=== PATIENT | female | born 1965 | race Asian ===

== ENCOUNTER 2017-04-05 10:06 | Emergency (ER) | payer OTHER ==
--- NOTE | 2017-04-05 11:08 | UC ---
Complaint Female HPI - HPI Summary HPI Summary: Low abdominal pain, pulling, fullness sensation since yesterday. Feels like UTI and pt has been prone to these in the past, but also concerned there is something wrong in her uterus since she is perimenopausal. Reports she may have had some high risk sexual exposures recently, is concerned about STIs. No vaginal itching, discharge, or fever. - History Of Current Complaint Chief Complaint: UCGU Stated Complaint: URINARY ISSUE Time Seen by Provider: 04/05/17 10:28 Hx Obtained From: Patient Hx Last Menstrual Period: 03/04/17 ?: No Onset/Duration: Gradual Onset, Lasting Days Timing: Constant Severity Initially: Mild Severity Currently: Mild Character: Dull, Cramping Aggravating Factor(s): Movement Associated Signs And Symptoms: Negative: Fever, Back Pain, Vaginal Bleeding/ Discharge, Vaginal Discharge, Vomiting(# Of Episodes =), Genital Swelling - Allergies/Home Medications Allergies/Adverse Reactions: Allergies Allergy/AdvReac Type Severity Reaction Status Date / Time Sulfa Antibiotics Allergy Hives Verified 02/16/16 17:28 PMH/Surg Hx/FS Hx/Imm Hx Previously Healthy: Yes - Surgical History Surgical History: Yes Surgery Procedure, Year, and Place: [facility] 1996 - Family History Known Family History: Positive: None - Social History Occupation: Unemployed Alcohol Use: Occasionally Substance Use Type: None Smoking Status (MU): Never Smoked Tobacco Review of Systems Constitutional: Negative Skin: Negative Eyes: Negative ENT: Negative Respiratory: Negative Cardiovascular: Negative Gastrointestinal: Abdominal Pain Genitourinary: Negative Motor: Negative Neurovascular: Negative Musculoskeletal: Negative Neurological: Negative Psychological: Negative All Other Systems Reviewed And Are Negative: Yes Physical Exam Triage Information Reviewed: Yes Appearance: Well-Appearing, No Pain Distress, Well-Nourished Vital Signs: Initial Vital Signs Temp 97.7 F 04/05/17 10:07 Pulse 76 04/05/17 10:07 Resp 18 04/05/17 10:07 Pulse Ox 100 04/05/17 10:07 Vital Signs Reviewed: Yes Eye Exam: Normal Eyes: Positive: Conjunctiva Clear ENT Exam: Normal ENT: Positive: Normal ENT inspection, Hearing grossly normal, Pharynx normal, TMs normal Dental Exam: Normal Neck exam: Normal Neck: Positive: Supple, Nontender, No Lymphadenopathy Respiratory Exam: Normal Respiratory: Positive: Chest non-tender, Lungs clear, Normal breath sounds, No respiratory distress, No accessory muscle use Cardiovascular Exam: Normal Cardiovascular: Positive: RRR, No Murmur Musculoskeletal Exam: Normal Neurological Exam: Normal Neurological: Positive: Alert Psychological Exam: Normal Skin Exam: Normal - Additional Comments Church Administrator exam performed, no external masses or lesions. Vagina WNL with whitish discharge. Cervix nontender, purple bumps at 3 o'clock no bleeding. Adnexa no mass nontender. Uterus not enlarged, mildly tender. Complaint Female Dx - Differential Dx/Diagnosis Provider Diagnoses: UTI. pelvic pain Discharge - Discharge Plan Condition: Stable Disposition: HOME Patient Education Materials: Urinary Tract Infection in Women (ED), Pelvic Pain (ED) Referrals: Sydnee Damon MD [Primary Care Provider] - Additional Instructions: Please see Dr. Damon when you get back from your trip if you do not have full improvement. Make sure you mention the spots on your cervix to Dr. Damon at your physical in May.
== END 2017-04-05 11:17 | disposition home or self-care (01) ==
LOC: UCEAST 10:06
DX: N39.0 Urinary tract infection, site not specified (principal); R10.2 Pelvic and perineal pain
CPT/HCPCS: 81003; 87480; 87491; 87510; 87591; 99212; G0463

== ENCOUNTER 2018-08-21 10:26 | Emergency (ER) | payer OTHER ==
[2018-08-21 10:33] VITALS: BP 125/78
--- NOTE | 2018-08-21 10:36 | UC ---
Throat Pain/Nasal Arpan HPI - HPI Summary HPI Summary: 53 yo female presents with sinus pain/pressure/congestion, post nasal drip, and dry cough. She tells me that her sinus symptoms started about a week ago and she thought it was her allergies flaring up. Has been using flonase, netti pot, and zyrtec without relief. Over the last 2 days her sinus symptoms worsened and she began to have a dry cough that she attributes to throat irritation from post nasal drip. Denies fever, chills, SOB, chest pain, rash. - History of Current Complaint Chief Complaint: UCGeneralIllness Stated Complaint: SINUS CONGESTION, AND SORE THROAT Time Seen by Provider: 08/21/18 10:36 Hx Obtained From: Patient Hx Last Menstrual Period: 03/04/17 Onset/Duration: Gradual Onset Severity: Moderate Pain Intensity: 5 Pain Scale Used: 0-10 Numeric Cough: Nonproductive - Allergies/Home Medications Allergies/Adverse Reactions: Allergies Allergy/AdvReac Type Severity Reaction Status Date / Time Sulfa (Sulfonamide Allergy Hives Verified 08/21/18 10:33 Antibiotics) PMH/Surg Hx/FS Hx/Imm Hx - Additional Past Medical History Additional PMH: None - Surgical History Surgical History: Yes Surgery Procedure, Year, and Place: [facility] 1996,[facility] - Family History Known Family History: Positive: None - Social History Occupation: Employed Full-time Lives: With Family Alcohol Use: Occasionally Substance Use Type: None Smoking Status (MU): Never Smoked Tobacco Review of Systems All Other Systems Reviewed And Are Negative: Yes Constitutional: Positive: Negative Skin: Positive: Negative Eyes: Positive: Negative ENT: Positive: Nasal Discharge, Sinus Congestion, Sinus Pain/Tenderness Respiratory: Positive: Cough Cardiovascular: Positive: Negative Gastrointestinal: Positive: Negative Neurovascular: Positive: Negative Neurological: Positive: Negative Psychological: Positive: Negative Physical Exam - Summary Physical Exam Summary: GENERAL: NAD. WDWN. No pain distress. SKIN: No rashes, sores, lesions, or open wounds. HEENT: Head: AT/NC Eyes: EOM intact. Conjunctiva clear without inflammation or discharge. Ears: Hearing grossly normal. TMs intact, no bulging, erythema, or edema. Nose: Nasal mucosa moderately swollen and erythematous with yellow discharge. TTP maxillary and frontal sinus. Positive post nasal drip Throat: Posterior oropharynx without exudates, erythema, or tonsillar enlargement. Uvula midline. NECK: Supple. Nontender. No lymphadenopathy. CHEST: CTAB. No r/r/w. No accessory muscle use. Breathing comfortably and in no distress. CV: RRR. Without m/r/g. Pulses intact. NEURO: Alert. PSYCH: Age appropriate behavior. Triage Information Reviewed: Yes Vital Signs: Initial Vital Signs Temp 98 F 08/21/18 10:30 Pulse 84 08/21/18 10:30 Resp 16 08/21/18 10:30 BP 125/78 08/21/18 10:30 Pulse Ox 99 08/21/18 10:30 Vital Signs Reviewed: Yes Throat Pain/Nasal Course/Dx - Course Course Of Treatment: Sinusitis - Differential Dx/Diagnosis Provider Diagnoses: Sinusitis Discharge - Sign-Out/Discharge Documenting (check all that apply): Patient Departure All imaging exams completed and their final reports reviewed: No Studies - Discharge Plan Condition: Stable Disposition: HOME Prescriptions: Amoxicillin PO (*) [Amoxicillin 875 MG (*)] 875 mg PO BID #14 tab Patient Education Materials: Sinusitis (ED) Referrals: Sydnee Daomn MD [Primary Care Provider] - Additional Instructions: If you develop a fever, shortness of breath, chest pain, new or worsening symptoms - please call your PCP or go to the ED. - Billing Disposition and Condition Condition: STABLE Disposition: Home
== END 2018-08-21 10:48 | disposition home or self-care (01) ==
LOC: UCEAST 10:26
DX: Z88.1 Allergy status to other antibiotic agents (principal); J32.9 Chronic sinusitis, unspecified
CPT/HCPCS: 99212; G0463

== ENCOUNTER 2019-04-18 21:40 | Emergency (ER) | payer OTHER ==
[2019-04-18 21:54] VITALS: BP 125/80
--- NOTE | 2019-04-18 22:17 | UC ---
Abdominal Pain Female HPI - HPI Summary HPI Summary: 53 year old female with no PMH, presents with epigrastic, RUQ abdominal pain since 6pm after eating dinner. Pain increased, very severe. Patient states had similar symptoms ~ 20 years ago, thought was acid reflux, resolved on own after several weeks. no GERD/ reflux since. - History of Current Complaint Chief Complaint: UCAbdominalPain Stated Complaint: EPIGASTRIC PAIN Time Seen by Provider: 04/18/19 22:02 Hx Obtained From: Patient, Family/Front Office Administrator - Hx Last Menstrual Period: post menopause ?: No Onset/Duration: Sudden Onset, Lasting Minutes Timing: Constant Severity Initially: Severe Severity Currently: Severe Pain Intensity: 7 Pain Scale Used: 0-10 Numeric Location: Discrete At: RUQ, Epigastric Radiates: No Character: Cramping, Sharp Aggravating Factor(s): Nothing Alleviating Factor(s): Nothing Associated Signs and Symptoms: Positive: Negative Allergies/Adverse Reactions: Allergies Allergy/AdvReac Type Severity Reaction Status Date / Time Sulfa (Sulfonamide Allergy Hives Verified 10/07/18 14:57 Antibiotics) PMH/Surg Hx/FS Hx/Imm Hx Previously Healthy: Yes - Surgical History Surgical History: Yes Surgery Procedure, Year, and Place: lap appy 1996,hyster - Family History Known Family History: Positive: None - Social History Alcohol Use: Occasionally Substance Use Type: None Smoking Status (MU): Never Smoked Tobacco Review of Systems All Other Systems Reviewed And Are Negative: Yes Constitutional: Positive: Negative Gastrointestinal: Positive: Abdominal Pain Psychological: Positive: Negative Is Patient Immunocompromised?: No Physical Exam Triage Information Reviewed: Yes Appearance: Well-Appearing, No Pain Distress, Well-Nourished Vital Signs: Initial Vital Signs Temp 99.0 F 04/18/19 21:47 Pulse 80 04/18/19 21:47 Resp 16 04/18/19 21:47 BP 125/80 04/18/19 21:47 Pulse Ox 100 04/18/19 21:47 Vital Signs Reviewed: Yes Eyes: Positive: Conjunctiva Clear ENT: Positive: Hearing grossly normal Abdomen Description: Positive: No Organomegaly, Soft, McBurney's Point Tenderness, Other: - + epigastric pain, mild, + GB pain moderate to severe. Negative: CVA Tenderness (R), CVA Tenderness (L), Distended, Guarding, Hepatomegaly, Splenomegaly Discharge - Discharge Plan Condition: Good Disposition: HOME-RECOMMEND TO ED Patient Education Materials: Acute Abdominal Pain (ED) Referrals: Sydnee Damon MD [Primary Care Provider] - Additional Instructions: Please go to ER for further evaluation as we do not have imaging here currently. - Billing Disposition and Condition Condition: GOOD Disposition: Home-Recommend to ED
== END 2019-04-18 22:14 | disposition home health service (06) ==
LOC: UCEAST 21:40
DX: R10.11 Right upper quadrant pain (principal); R10.13 Epigastric pain; Z88.2 Allergy status to sulfonamides
CPT/HCPCS: 99212; G0463

== ENCOUNTER 2019-04-18 22:34 | Emergency (ER) | payer OTHER ==
[2019-04-19] MEDS ORDERED: Ketorolac INJ* 30 MG/ML 1 ML VIAL IV PUSH ONE (00:25)
[2019-04-19] MEDS ORDERED: NS 0.9% 1000 ML** 1,000 ML IV ONE (00:25)
--- NOTE | 2019-04-19 00:35 | ED ---
GI/ HPI - HPI Summary HPI Summary: 53-year-old female presents with abdominal pain since this evening. She states that she ate something and then developed the pain. States pain is greatest in epigastric region. Doesn't radiate anywhere. She denies any nausea vomiting. No fevers. She denies any chest pain or shortness breath. Has had this pain 26 years ago and has not had symptoms since. No urinary symptoms. Has had appendectomy and hysterectomy in past. Hasn't taken anything for his symptoms. - History of Current Complaint Chief Complaint: EDAbdPain Time Seen by Provider: 04/19/19 00:15 Stated Complaint: ABD PAIN PER PT Hx Last Menstrual Period: post menopause Pain Intensity: 7 - Allergy/Home Medications Allergies/Adverse Reactions: Allergies Allergy/AdvReac Type Severity Reaction Status Date / Time Sulfa (Sulfonamide Allergy Hives Verified 04/18/19 22:43 Antibiotics) PMH/Surg Hx/FS Hx/Imm Hx Endocrine/Hematology History: Denies: Hx Diabetes, Hx Thyroid Disease Cardiovascular History: Denies: Hx Hypertension Respiratory History: Denies: Hx Asthma, Hx Chronic Obstructive Pulmonary Disease (COPD) GI History: Denies: Hx Ulcer - Cancer History Hx Chemotherapy: No Hx Radiation Therapy: No - Surgical History Surgery Procedure, Year, and Place: lap appy 1996,hyster Infectious Disease History: No Infectious Disease History: Reports: Traveled Outside the [place] in Last 30 Days Denies: Hx Clostridium Difficile, Hx Hepatitis, Hx Human Immunodeficiency Virus (HIV), Hx of Known/Suspected MRSA, Hx Shingles, Hx Tuberculosis, Hx Known/ Suspected VRE, Hx Known/Suspected VRSA, History Other Infectious Disease - Family History Known Family History: Positive: None - Social History Alcohol Use: Occasionally Substance Use Type: Reports: None Smoking Status (MU): Never Smoked Tobacco Review of Systems Negative: Fever Negative: Chest Pain Negative: Shortness Of Breath Positive: Abdominal Pain. Negative: Vomiting, Diarrhea, Nausea All Other Systems Reviewed And Are Negative: Yes Physical Exam Triage Information Reviewed: Yes Vital Signs On Initial Exam: Initial Vitals Temp Pulse Resp BP Pulse Ox 98.0 F 78 16 148/88 98 04/18/19 22:35 04/18/19 22:35 04/18/19 22:35 04/18/19 22:35 04/18/19 22:35 Vital Signs Reviewed: Yes Appearance: Positive: Well-Appearing Skin: Positive: Warm, Dry Head/Face: Positive: Normal Head/Face Inspection Eyes: Positive: Normal, Conjunctiva Clear ENT: Positive: Pharynx normal Respiratory/Lung Sounds: Positive: Clear to Auscultation, Breath Sounds Present Cardiovascular: Positive: Normal, RRR Abdomen Description: Positive: Soft, Other: - tenderness in RUQ Bowel Sounds: Positive: Present Musculoskeletal: Positive: Normal Neurological: Positive: Normal Psychiatric: Positive: Normal Diagnostics - Vital Signs Vital Signs Temp Pulse Resp BP Pulse Ox 04/18/19 22:35 98.0 F 78 16 148/88 98 - Laboratory Result Diagrams: 04/19/19 01:20 04/19/19 01:20 Lab Statement: Any lab studies that have been ordered have been reviewed, and results considered in the medical decision making process. - Ultrasound No standard instances Ultrasound Interpretation Completed By: Radiologist Summary of Ultrasound Findings: IMPRESSION: Abnormal gallbladder findings without cholelithiasis likely representing. changes from underlying liver dysfunction or low protein state. Re-Evaluation - Re-Evaluation First Eval Re-Evaluation Time: 01:46 Change: Improved Comment: feeling better GIGU Course/Dx - Course Course Of Treatment: 53-year-old female presents with abdominal pain since this evening. She states that she ate something and then developed the pain. States pain is greatest in epigastric region. Doesn't radiate anywhere. She denies any nausea vomiting. No fevers. She denies any chest pain or shortness breath. Has had this pain 26 years ago and has not had symptoms since. No urinary symptoms. Has had appendectomy and hysterectomy in past. Hasn't taken anything for his symptoms. On exam tenderness right upper quadrant. gallbladder ultrasound shows abnormal findings but no stone. discussed with radiologist that this is not acaculous cholecystitis. patient pain improved. lfts normal. protein is low. discussed should follow up with gi or primary. told return if develop any fevers. patient understand and agrees with plan. - Diagnoses Differential Diagnoses - Female: Cholelithiasis, Cholecystitis, Gastritis Provider Diagnoses: Epigastric pain Discharge - Sign-Out/Discharge Documenting (check all that apply): Patient Departure Patient Received Moderate/Deep Sedation with Procedure: No - Discharge Plan Condition: Good Disposition: HOME Patient Education Materials: Epigastric Pain (ED) Referrals: Sydnee Damon MD [Primary Care Provider] - Ck Rondon MD [Medical Doctor] - Additional Instructions: follow up with GI avoid fatty foods can try a course of antacids Take tyenlol as needed for pain every 6 hours follow up with primary within 5 days Return to ED if develop fever or any new or worsening symptoms - Billing Disposition and Condition Condition: GOOD Disposition: Home
[2019-04-19 01:37] LABS: ABS Lymphocytes 0.5 10^3/ul (1.0-4.8); ABS Monocytes 0.5 10^3/ul (0-0.8); Eosinophil % 0.2 %; Hematocrit 36 % (35-47); Hemoglobin 11.7 g/dL (12.0-16.0); Lymphocyte % 6.5 %; Mean Corpuscular HGB Conc 32 g/dL (31-36); Mean Corpuscular Hemoglobin 30 pg (27-31); Mean Corpuscular Volume 93 fL (80-97); Mean Platelet Volume 8.2 fL (7.4-10.4); Platelet Count 182 10^3/uL (150-450); Red Blood Count 3.89 10^6 /uL (3.70-4.87); Red Cell Distribution Width 14 % (10-15); White Blood Count 8.1 10^3/uL (3.5-10.8)
[2019-04-19 01:42] VITALS: BP 120/75
[2019-04-19 01:50] LABS: Albumin 3.7 g/dL (3.2-5.2); Amylase 38 U/L (29-103); CO2 Carbon Dioxide 17 mmol/L (22-32); Calcium 8.2 mg/dL (8.6-10.3); Chloride 108 mmol/L (101-111); Sodium 135 mmol/L (135-145)
[2019-04-19 01:52] LABS: Urine Appearance Clear; Urine Bilirubin Negative (Negative); Urine Blood Negative (Negative); Urine Color Colorless; Urine Glucose Negative (Negative); Urine Ketones Trace (Negative); Urine Nitrite Negative (Negative); Urine Protein Negative (Negative); Urine Specific Gravity 1.003 (1.010-1.030); Urine Urobilinogen Negative (Negative)
[2019-04-19 01:56] LABS: ALT 14 U/L (7-52); Albumin/Globulin Ratio 1.7 (1-3); Alkaline Phosphatase 39 U/L (34-104); BUN/Creatinine Ratio 21.8 (8-20); Blood Urea Nitrogen 12 mg/dL (6-24); C Reactive Protein 7.54 mg/L (<8.01); EGFR African American 140.4 (>60); EGFR Non-African American 116.1 (>60); Globulin 2.2 g/dL (2-4); Glucose 109 mg/dL (70-100); Total Protein 5.9 g/dL (6.4-8.9)
[2019-04-19 01:58] LABS: Anion Gap 10 mmol/L (2-11)
== END 2019-04-19 02:52 | disposition home or self-care (01) ==
LOC: ED 22:34
DX: R10.13 Epigastric pain (principal); R10.811 Right upper quadrant abdominal tenderness; Z90.710 Acquired absence of both cervix and uterus; Z90.89 Acquired absence of other organs; Z88.2 Allergy status to sulfonamides
CPT/HCPCS: 36415; 76705; 80053; 81003; 82150; 83690; 85025; 86140; 96361; 96374; 99283; J1885